=== PATIENT | male | born 1980 | race African-American/Black ===

== ENCOUNTER 2017-07-21 12:21 | Emergency (ER) | payer BC, SELFPAY ==
[2017-07-21] MEDS ORDERED: Ondansetron HCl/PF 4 MG/2 ML Vial ONE ×2 (12:32→13:51)
[2017-07-21] MEDS ORDERED: Ketorolac Tromethamine 30 MG/ML VIAL ONE (12:32)
[2017-07-21] MEDS ORDERED: Tamsulosin HCl 0.4 MG CAP PO SCH (13:45)
[2017-07-21] MEDS ORDERED: Morphine Sulfate 2 MG/ML SYRINGE ONE (13:50)
[2017-07-21 14:05] LABS: Bilirubin Moderate (Negative); Blood, Urine Large (Negative); Glucose, Urine (Dipstick) Negative (Negative); Ketone, Urine Trace mg/dL (Negative); Nitrite Negative (Negative); Protein, Urine (Dipstick) 100 mg/dL (Neg-Trace)
[2017-07-21 14:06] LABS: Bacteria/HPF None Seen HPF (None Seen); Hyaline Casts/LPF 7-10 HYALINE CAST LPF (0-3 Hyaline); RBC/HPF GREATER THAN 50-TNTC HPF (0-3); Squamous Epithelial None Seen HPF (0-3)
--- NOTE | 2017-07-21 14:53 | CT ---
CT OF THE ABDOMEN AND PELVIS WITHOUT CONTRAST: Date: 07/21/17 COMPARISON: 11/21/16. HISTORY: Nausea, vomiting, and abdominal pain. TECHNIQUE: Multiple contiguous axial images were obtained in a CT of the abdomen and pelvis without contrast. C oronal reformats were performed. FINDINGS: There is a 3.0 mm calcification in the proximal aspect of the left ureter with mild left-sided hydro nephrosis. There is an additional nonobstructing 4-5 mm calcification in the left kidney. 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 No right-sided hydronephrosis is seen. The liver, gallbladder, adrenal glands, spleen, and pancreas are unremarkable, although evaluation i s limited without IV contrast. The large and small bowel are unremarkable. No abdominal or pelvic lymphadenopathy are seen. The osseous structures, visualized inferior thorax, and abdominal wall soft tissues are unremarkable . IMPRESSION: 1. Left proximal ureteral calcification with mild left hydronephrosis. 2. Nonobstructing left renal calcification. 3. 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 POS: [facility]
[2017-07-21 15:31] LABS: #Basophils 0.1 thou/uL (0.0-0.2); #Eosinphils 0.1 thou/uL (0.0-0.7); #Lymphocytes 2.6 thou/uL (1.20-3.40); #Monocytes 0.9 thou/uL (0.11-0.59); #Neutrophils 4.5 thou/uL (1.40-6.50); %Basophils 0.9 % (0.0-1.0); %Eosinophils 1.4 % (0.0-10.0); %Lymphocytes 31.3 % (21.0-51.0); %Monocytes 11.2 % (0.0-10.0); Hematocrit 43.6 % (42.0-52.0); Red Blood Cell (RBC) Count 5.19 mill/uL (4.70-6.10); White Blood Cell (WBC) Count 8.1 thou/uL (4.8-10.8)
[2017-07-21 16:37] LABS: ALT (SGPT) 17 U/L (8-55); AST (SGOT) 27 U/L (5-34); Alkaline Phosphatase 82 U/L (40-150); Anion Gap 17 mmol/L (10-20); BUN (Urea Nitrogen) 13 mg/dL (8.9-20.6); Bilirubin, Total 0.5 mg/dL (0.2-1.2); Calc. Creatinine Clearance 0 mL/min (70-130); Calcium 9.3 mg/dL (7.8-10.44); Carbon Dioxide 20 mmol/L (22-29); Chloride 108 mmol/L (98-107); Estimated GFR-MDRD 87; Protein, Total 8.2 g/dL (6.0-8.3)
== END 2017-07-21 15:54 | disposition home or self-care (01) ==
LOC: ERS 12:21
DX: N13.2 Hydronephrosis with renal and ureteral calculous obstruction (principal); N39.0 Urinary tract infection, site not specified; F17.210 Nicotine dependence, cigarettes, uncomplicated; I10 Essential (primary) hypertension
CPT/HCPCS: 74176; 80053; 81003; 81015; 85025; 87086; 96374; 96375; 96376; J1885; J2270; J2405

== ENCOUNTER 2018-06-04 17:06 | Emergency (ER) | payer OTHER ==
[2018-06-04] MEDS ORDERED: Morphine 4 MG/ML VIAL ONE (18:11)
[2018-06-04] MEDS ORDERED: Ondansetron HCl/PF 4 MG/2 ML Vial ONE (18:11)
[2018-06-04] MEDS ORDERED: Ketorolac Tromethamine 30 MG/ML VIAL ONE (18:11)
[2018-06-04 18:17] LABS: #Basophils 0.1 thou/uL (0.0-0.2); #Lymphocytes 1.8 thou/uL (1.20-3.40); #Monocytes 0.9 thou/uL (0.11-0.59); #Neutrophils 5.4 thou/uL (1.40-6.50); %Basophils 0.7 % (0.0-1.0); %Eosinophils 0.4 % (0.0-10.0); %Lymphocytes 22.4 % (21.0-51.0); %Neutrophils 65.5 % (42.0-75.0); Hemoglobin 14.1 g/dL (14.0-18.0); Mean Corpuscular HGB CONC 34.2 g/dL (32.0-36.0); Mean Corpuscular Hemoglobin 27.6 pg (27.0-31.0); Mean Corpuscular Volume 80.7 fL (78.0-98.0); Mean Platelet Volume 7.1 fL (7.4-10.4); Platelet Count 197 thou/uL (130-400); RBC Distribution Width 12.3 % (11.5-14.5); Red Blood Cell (RBC) Count 5.11 mill/uL (4.70-6.10); White Blood Cell (WBC) Count 8.2 thou/uL (4.8-10.8)
[2018-06-04 18:39] LABS: ALT (SGPT) 15 U/L (8-55); AST (SGOT) 13 U/L (5-34); Albumin 4.6 g/dL (3.5-5.0); Alkaline Phosphatase 79 U/L (40-150); Anion Gap 16 mmol/L (10-20); BUN (Urea Nitrogen) 14 mg/dL (8.9-20.6); Bilirubin, Total 0.6 mg/dL (0.2-1.2); Calc. Creatinine Clearance 0 mL/min (70-130); Calcium 9.9 mg/dL (7.8-10.44); Carbon Dioxide 24 mmol/L (22-29); Chloride 104 mmol/L (98-107); Estimated GFR-MDRD 68; Globulin 3.4 g/dL (2.4-3.5); Glucose 138 mg/dL (70-105); Lipase 16 U/L (8-78); Potassium 3.7 mmol/L (3.5-5.1); Sodium 140 mmol/L (136-145)
[2018-06-04 18:41] LABS: Bilirubin Negative (Negative); Blood, Urine Negative (Negative); Clarity CLEAR (Clear); Glucose, Urine (Dipstick) Negative (Negative); Leukocyte Trace (Negative); Nitrite Negative (Negative); Protein, Urine (Dipstick) Trace mg/dL (Neg-Trace); Specific Gravity, Urine 1.035 (1.002-1.036)
--- NOTE | 2018-06-04 18:42 | CT ---
CT ABDOMEN AND PELVIS NONCONTRAST 06/04/18 HISTORY: Left flank pain. Dysuria. COMPARISON: 07/21/17. FINDINGS: Each renal collecting system, ureter and the urinary bladder are decompressed. Within the left kidney , a 0.5 cm calculus is present within a nondilated calyx at the superior pole. Tiny hyperdensities ar e also associated with multiple pyramids. A 0.2 cm calculus is present within a nondilated calyx at the mid portion right kidney. Additional ti ny calcifications are also evident. Lack of contrast limits evaluation for other abnormalities. IMPRESSION: Nonobstructing bilateral renal calculi, measuring up to 0.5 cm in the left kidney. POS: [facility]
[2018-06-04 18:43] LABS: Bacteria/HPF None Seen HPF (None Seen); Hyaline Casts/LPF 4-6 HYALINE CAST LPF (0-3 Hyaline); Pathc Cast-AUWi Flag 0.14 (0-2.49)
[2018-06-04 19:08] LABS: Transitional Epithelial 0-3 HPF (0-3)
== END 2018-06-04 19:38 | disposition home or self-care (01) ==
LOC: ERS 17:06
DX: N20.0 Calculus of kidney (principal); Z71.6 Tobacco abuse counseling; I10 Essential (primary) hypertension; F17.210 Nicotine dependence, cigarettes, uncomplicated
CPT/HCPCS: 74176; 80053; 81003; 81015; 83690; 85025; 87086; 96361; 96374; 96375; 99406; J1885; J2270; J2405

== ENCOUNTER 2018-07-30 01:49 | Emergency (ER) | payer SELFPAY ==
[2018-07-30 02:24] LABS: #Basophils 0.1 thou/uL (0.0-0.2); #Eosinphils 0.2 thou/uL (0.0-0.7); #Lymphocytes 3.5 thou/uL (1.20-3.40); #Monocytes 1.1 thou/uL (0.11-0.59); #Neutrophils 6.5 thou/uL (1.40-6.50); %Basophils 0.7 % (0.0-1.0); %Eosinophils 1.5 % (0.0-10.0); %Lymphocytes 30.7 % (21.0-51.0); %Neutrophils 57.1 % (42.0-75.0); Hemoglobin 13.9 g/dL (14.0-18.0); Mean Corpuscular HGB CONC 32.8 g/dL (32.0-36.0); Mean Corpuscular Hemoglobin 27.1 pg (27.0-31.0); Mean Corpuscular Volume 82.8 fL (78.0-98.0); Mean Platelet Volume 7.7 fL (7.4-10.4); Platelet Count 232 thou/uL (130-400); RBC Distribution Width 12.2 % (11.5-14.5); Red Blood Cell (RBC) Count 5.14 mill/uL (4.70-6.10); White Blood Cell (WBC) Count 11.3 thou/uL (4.8-10.8)
[2018-07-30] MEDS ORDERED: Morphine 4 MG/ML VIAL ONE (02:29)
[2018-07-30] MEDS ORDERED: Ondansetron HCl/PF 4 MG/2 ML Vial ONE (02:29)
[2018-07-30] MEDS ORDERED: Ketorolac Tromethamine 30 MG/ML VIAL ONE (02:29)
[2018-07-30 02:45] LABS: ALT (SGPT) 19 U/L (8-55); AST (SGOT) 19 U/L (5-34); Albumin 4.4 g/dL (3.5-5.0); Alkaline Phosphatase 61 U/L (40-150); Anion Gap 15 mmol/L (10-20); BUN (Urea Nitrogen) 12 mg/dL (8.9-20.6); Bilirubin, Total 0.5 mg/dL (0.2-1.2); Calc. Creatinine Clearance 0 mL/min (70-130); Calcium 9.3 mg/dL (7.8-10.44); Carbon Dioxide 24 mmol/L (22-29); Chloride 106 mmol/L (98-107); Estimated GFR-MDRD 72; Globulin 3.2 g/dL (2.4-3.5); Glucose 109 mg/dL (70-105); Potassium 3.4 mmol/L (3.5-5.1); Protein, Total 7.6 g/dL (6.0-8.3); Sodium 142 mmol/L (136-145)
[2018-07-30 04:44] LABS: Bilirubin Negative (Negative); Blood, Urine Large (Negative); Clarity CLEAR (Clear); Glucose, Urine (Dipstick) Negative (Negative); Leukocyte Negative (Negative); Nitrite Negative (Negative); Protein, Urine (Dipstick) 30 mg/dL (Neg-Trace); Specific Gravity, Urine 1.025 (1.002-1.036); Urobilinogen 0.2 mg/dL (0.2-1.0)
[2018-07-30 04:50] LABS: Bacteria/HPF None Seen HPF (None Seen); Hyaline Casts/LPF 4-6 HYALINE CAST LPF (0-3 Hyaline); Pathc Cast-AUWi Flag 0.43 (0-2.49); RBC/HPF GREATER THAN 50-TNTC HPF (0-3); Squamous Epithelial 0-3 HPF (0-3)
--- NOTE | 2018-07-30 10:48 | CT ---
PRELIMINARY REPORT/[facility]/EMERGENTY AFTER-HOURS PROCEDURE CT Abdomen and Pelvis Without Intravenous Contrast EXAM DATE/TIME: 07/30/2018 2:49 AM CLINICAL HISTORY: 37 years old, male; Pain; Abdominal pain; Localized; Left; Patient HX: 37 yo m presents to ed with le ft back pain. PT reports left upper back pain that woke him up around 12: 30 am tonight, with associa carline chills, nausea, and vomiting. PT reports HX of kidney stones, last kidney stone in may TECHNIQUE: Axial computed tomography images of the abdomen and pelvis without intravenous contrast. Coronal reformatted images were created and reviewed. COMPARISON: No relevant prior studies available. FINDINGS: Lower thorax: No acute findings. ABDOMEN: Liver: Normal. Gallbladder and bile ducts: Normal Pancreas: Normal. Spleen: Normal. Adrenals: Normal. Kidneys and ureters: Bilateral nonobstructive 1 mm nephrolithiasis. Mild left hydronephrosis and prox imal left hydroureter, with obstructive 4 mm calculus within the left proximal ureter. Stomach and bowel: Normal. Appendix: Appendix is normal. PELVIS: Bladder: Unremarkable as visualized. Reproductive: Unremarkable as visualized. ABDOMEN and PELVIS: Intraperitoneal space: Normal. No free air. No significant fluid collection. Bones/joints: No acute abnormality. Soft tissues: Normal. Vasculature: Multiple phleboliths within the pelvis. Lymph nodes: Normal. No enlarged lymph nodes. IMPRESSION: Mild left hydronephrosis and proximal left hydroureter, with obstructive 4 mm calculus within the lef t proximal ureter. Thank you for allowing us to participate in the care of your patient. Dictated and Authenticated by: Charanjit Bailey MD 07/30/2018 3:34 AM Central Time ([place] & [place]) FINAL REPORT CT ABDOMEN AND PELVIS WITHOUT CONTRAST STONE PROTOCOL: Date: 07/30/18 HISTORY: Low back pain. Left flank pain. COMPARISON: Renal stone protocol dated 06/04/18. FINDINGS/IMPRESSION: Findings and impression are concordant with the preliminary report by Gracie. Left ureteral calculus approximately 4.5 cm distal to the UPJ. The appendix is visualized and is norm al. CODE: QA POS: [facility]
== END 2018-07-30 05:33 | disposition home or self-care (01) ==
LOC: ERS 01:49
DX: N13.2 Hydronephrosis with renal and ureteral calculous obstruction (principal); I10 Essential (primary) hypertension; F17.210 Nicotine dependence, cigarettes, uncomplicated; Z87.442 Personal history of urinary calculi
CPT/HCPCS: 36415; 74176; 80053; 81003; 81015; 85025; 87086; 96361; 96374; 96375; J1885; J2270; J2405

== ENCOUNTER 2018-11-28 12:09 | Emergency (ER) | payer SELFPAY ==
[2018-11-28] MEDS ORDERED: HYDROcodone/Acetaminophen 5/325 mg Tablet ONE (13:12)
--- NOTE | 2018-11-28 13:19 | RAD ---
LEFT KNEE 4 VIEWS: Date: 11/28/18 HISTORY: Knee pain. COMPARISON: None. FINDINGS: No acute fracture or malalignment. No significant joint effusion. The tibial tunnel appears to be enl arged, likely from prior revision. IMPRESSION: No acute abnormality. MRI recommended if clinically warranted. POS: [facility]
== END 2018-11-28 13:25 | disposition home or self-care (01) ==
LOC: ERS 12:09
DX: M25.462 Effusion, left knee (principal); I10 Essential (primary) hypertension; F17.210 Nicotine dependence, cigarettes, uncomplicated; Z87.442 Personal history of urinary calculi; X50.9XXA Other and unspecified overexertion or strenuous movements or postures, initial encounter

== ENCOUNTER 2020-10-18 07:11 | Emergency (ER) | payer SELFPAY ==
[2020-10-18] MEDS ORDERED: Lidocaine 1% PF 5 ML VIAL ONE (07:55)
[2020-10-18] MEDS ORDERED: cefTRIAXone\\ROCEPHIN 500 MG VIAL ONE (07:55)
[2020-10-19 21:40] LABS: Chlam.trachomatis by PCR,Urine Not Detected (NotDetected)
== END 2020-10-18 09:17 | disposition home or self-care (01) ==
LOC: ERS 07:11
DX: R36.9 Urethral discharge, unspecified (principal); I10 Essential (primary) hypertension; F17.210 Nicotine dependence, cigarettes, uncomplicated
CPT/HCPCS: 87491; 87591; 96372; 99283; J0696

== ENCOUNTER 2024-10-02 19:21 | Emergency (ER) | payer OTHER, SELFPAY ==
[2024-10-02] MEDS ORDERED: Metoclopramide HCl 10 MG (2 mL) VIAL ONE (20:11)
[2024-10-02] MEDS ORDERED: diphenhydrAMINE 50 MG/ML VIAL ONE (20:11)
[2024-10-02] MEDS ORDERED: Acetaminophen 325 MG TAB ONE (20:11)
== END 2024-10-02 21:25 | disposition home or self-care (01) ==
LOC: ERS 19:21
DX: R51.9 Headache, unspecified (principal); F17.210 Nicotine dependence, cigarettes, uncomplicated; I10 Essential (primary) hypertension
CPT/HCPCS: 96365; 96375; J1200; J2765